=== PATIENT | female | born 1990 | race Caucasian/White ===

== ENCOUNTER 2018-05-05 15:47 | Emergency (ER) | payer OTHER ==
[~2018-05-05] VITALS: Ht 157.5 cm; Wt 59.0 kg
== END 2018-05-05 20:41 | disposition home or self-care (01) ==
LOC: ER 15:47
DX: O26.891 Other specified pregnancy related conditions, first trimester (principal); Z34.81 Encounter for supervision of other normal pregnancy, first trimester

== ENCOUNTER 2018-12-03 08:23 | Inpatient (IN) | payer OTHER ==
[~2018-12-03] VITALS: Ht 157.5 cm; Wt 4.1 kg
[2018-12-03] MEDS ORDERED: OBSTETRIX EC C1 EACH PO (08:51)
== END 2018-12-06 19:50 | disposition home or self-care (01) | DRG 785 ==
LOC: OB/GYN 08:23 → LDR 08:23 → O/R 08:23 → OB/GYN 18:30
PROVIDERS: ADMIT Obstetrics & Gynecology Obstetrics
PROC: 4A1HXCZ Monitoring of Products of Conception, Cardiac Rate, External Approach (ICD-10-PCS; 2018-12-03)
PROC: 0UB70ZZ Excision of Bilateral Fallopian Tubes, Open Approach (ICD-10-PCS; 2018-12-03)
PROC: 10D00Z1 Extraction of Products of Conception, Low, Open Approach (ICD-10-PCS; principal; 2018-12-03 14:00)
DX: O36.63X0 Maternal care for excessive fetal growth, third trimester, not applicable or unspecified (principal); O76 Abnormality in fetal heart rate and rhythm complicating labor and delivery; Z3A.38 38 weeks gestation of pregnancy; Z37.0 Single live birth; Z30.2 Encounter for sterilization